=== PATIENT | female | born 1955 | race Caucasian/White ===

== ENCOUNTER 2018-12-31 04:03 | Observation (INO) | payer BC ==
[2018-12-31 05:48] VITALS: BMI 30.9
[2018-12-31] MEDS ORDERED: Ondansetron PF 4 MG/2 ML Vial IVP PRN (06:05)
[2018-12-31] MEDS ORDERED: Acetaminophen 500 MG TAB PO PRN (06:05)
[2018-12-31] MEDS ORDERED: Ondansetron ODT 4 MG TAB PO PRN (06:05)
[2018-12-31] MEDS: Levothyroxine Sodium 50 MCG TAB PO SCH (06:23)
--- NOTE | 2018-12-31 07:13 | HP ---
PRIMARY CARE PROVIDER: Dr. Saúl Gonzalez of [place], [place]. CHIEF COMPLAINT: Abdominal pain. HISTORY OF PRESENT ILLNESS: This is a 63-year-old female, who initially presented to [facility] Emergency Department complaining of mid epigastric abdominal pain. The patient states she ate a fried meal approximately 7 p.m. on 12/30/2018, and developed mid epigastric and right upper quadrant abdominal pain that woke her from sleep approximately 12:30 a.m. on 12/31/2018. The patient states the pain radiated to her back and caused her to sit upright. The patient became concerned with the symptoms and presented to the emergency room for evaluation. The patient received aspirin and sublingual nitroglycerin without specific change to her quality of pain. The patient also received IV morphine sulfate, which relieved and aided her symptoms. The patient denied any abhishek chest pain, shortness of breath, fever, or chills. The patient did state associated nausea and one episode of emesis en route to the emergency room. The patient denies any strong family history of coronary artery disease or personal history. The patient states she typically does not eat fatty foods and had a fried meal with beer at approximately 7 p.m. as stated previously. Metabolic screening in the emergency room was essentially unrevealing and patient was referred to the observation unit for evaluation. PAST MEDICAL HISTORY: 1. Hypertension. 2. Hypothyroidism. 3. Hyperlipidemia. PAST SURGICAL HISTORY: Reviewed and negative. CURRENT MEDICATIONS: 1. Amlodipine/benazepril 10/10 mg 1 tablet p.o. daily. 2. Sertraline 50 mg p.o. daily. 3. Levothyroxine 100 mcg p.o. daily. ALLERGIES: NO KNOWN DRUG ALLERGIES. FAMILY HISTORY: No inheritable disease per patient report. SOCIAL HISTORY: Occasional alcohol use. No illicit drug use. No smoking or tobacco products. Functional of all activities of daily living. Resides in [place], [place]. REVIEW OF SYSTEMS: CONSTITUTIONAL: Negative for weight loss or gain, ability to conduct usual activities. SKIN: Negative for rash, itching. EYES: Negative for double vision, pain. ENT/MOUTH: Negative for nose bleeding, neck stiffness, pain, tenderness. CARDIOVASCULAR: Negative for palpitations, dyspnea on exertion, orthopnea. RESPIRATORY: Negative for shortness of breath, wheezing, cough, hemoptysis, fever or night sweats. GASTROINTESTINAL: Negative for poor appetite, abdominal pain, heartburn, nausea, vomiting, constipation, or diarrhea. GENITOURINARY: Negative for urgency, frequency, dysuria, nocturia. MUSCULOSKELETAL: Negative for pain, swelling. NEUROLOGIC/PSYCHIATRIC: Negative for anxiety, depression. ALLERGY/IMMUNOLOGIC: Negative for skin rash, bleeding tendency. Otherwise negative except as stated per HPI. PHYSICAL EXAMINATION: VITAL SIGNS: On admission, blood pressure 143/83, pulse 93, respiratory rate 18, temperature 99.1 degrees Fahrenheit, O2 saturation 95% on room air. GENERAL APPEARANCE: This is a 63-year-old female, alert and oriented x3, pleasant, smiling, in no acute distress. HEENT: Pupils are equal, round, reactive to light and accommodation. Extraocular muscles are intact. No scleral icterus. No conjunctival injection. Nares patent. OP is clear. Teeth in good repair. NECK: Supple. No cervical adenopathy. No thyromegaly. No carotid bruits. No JVD appreciated. Cervical spine with full active and passive range of motion. No meningeal signs noted. CHEST: Lungs are clear to auscultation bilaterally, CARDIOVASCULAR: S1, S2 without noted murmur, rub, or gallop. ABDOMEN: Rounded, soft, nontender, and nondistended. Bowel sounds are positive in all 4 quadrants. There is no hepatosplenomegaly. No abdominal bruits. No rebound or guarding appreciated. EXTREMITIES: Warm and dry with fair turgor. No clubbing, cyanosis, or asymmetric edema appreciated. Pulses palpable distally at the dorsalis pedis, posterior tibial, and popliteal arteries bilaterally. Capillary refill less than 2 seconds. NEUROLOGIC: Cranial nerves 2 through 12 are grossly intact. No focal or lateralizing signs appreciated. PERTINENT LABORATORY DATA AND X-RAY FINDINGS: Sodium 142, potassium 3.4, chloride 102, CO2 of 29, BUN 12, creatinine 0.86, estimated GFR 67, glucose 127, calcium 9.6. LFTs within normal limits. BNP less than 10. Troponin I negative x1. Albumin 4.6, lipase 46. CBC within normal limits. Portable chest x-ray dated 12/31/2018, by my interpretation shows no acute cardiopulmonary process. EKG dated 12/31/2018, by my interpretation shows sinus mechanism with heart rates in the 80s. Normal R-wave progression noted in the precordial leads. Incomplete right bundle branch block pattern. Left axis deviation. ASSESSMENT AND PLAN: 1. Epigastric abdominal pain. The patient will be observed on the telemetry unit. Question of gallbladder etiology. We will check right upper quadrant abdominal ultrasound to rule out gallbladder pathology or common bile duct obstruction. Continue symptomatic and supportive management. 2. Chest pain. Clinically, secondary to abdominal pain. No current evidence to suggest acute coronary syndrome. 3. Hypertension. Resume home antihypertensive regimen and monitor clinical response. 4. Hypothyroidism. Continue levothyroxine 50 mcg p.o. daily. 5. Hyperlipidemia. Continue Zocor 40 mg daily. 6. Prophylaxis. SCDs while in bed. Pepcid 20 mg p.o. b.i.d. CODE STATUS: Full. Surrogate medical decision maker is the patient's spouse. Job ID: [id number]
[2018-12-31 08:22] LABS: Troponin I Less than 0.010 ng/mL (< 0.028)
[2018-12-31] MEDS: Famotidine 20 MG TAB PO SCH ×2 (08:28→19:44)
[2018-12-31] MEDS: Amlodipine 5 mg/Benazepril 20 mg CAP PO SCH (08:29)
--- NOTE | 2018-12-31 08:49 | ULT ---
GALLBLADDER ULTRASOUND: INDICATION: Pain. FINDINGS: There is increased echogenicity of the hepatic parenchyma. Hypoattenuation adjacent the gallbladder may relate to focal fatty sparring. The gallbladder wall is normal in thickness at 2 mm. There is a focus of increased echogenicity of the gallbladder lumen, 4 mm without shadowing and is reported as nonmobile by the dust brush assembler. This could relate to a small gallbladder polyp. Harris's sign is repo rted as negative. The common duct is normal at 3 mm. IMPRESSION: 1. Findings which indicate a 4 mm gallbladder polyp. Six-month followup right upper quadrant ultraso und is recommended to confirm size stability. 2. Increased echogenicity of the liver indicating hepatic steatosis with probable sparing adjacent t he gallbladder. The possibility of a trace volume of pericholecystic edema is not excluded, although no discrete gallbladder wall thickening is recommended and there is a negative Harris's sign reportmichael d. Recommend clinical correlation in this regard. POS: [facility]
[2018-12-31 10:57] LABS: Troponin I Less than 0.010 ng/mL (< 0.028)
[2018-12-31] MEDS ORDERED: ISOVUE-370 76%-LOCM 1 ML ONE (12:00)
--- NOTE | 2018-12-31 13:05 | PDOC.HOSPP ---
- Subjective Encounter Date: 12/31/18 Encounter Time: 12:00 Subjective: Feels better.. - Objective Vital Signs & Weight: Vital Signs (12 hours) Temp Pulse Resp BP BP Pulse Ox 12/31/18 11:18 98.2 F 72 20 94/55 L 98 12/31/18 07:10 97.3 F L 78 20 118/63 94 L 12/31/18 05:19 98.7 F 79 18 124/74 96 Weight Weight 180 lb 9.6 oz Hospitalist ROS - Medication Medications: Active Medications Generic Name Dose Route Start Last Admin Trade Name Freq PRN Reason Stop Dose Admin Amlodipine/Benazepril HCl 1 cap 12/31/18 09:00 12/31/18 08:29 Lotrel 5/20 PO 1 cap DAILY TATYANA Administration Famotidine 20 mg 12/31/18 09:00 12/31/18 08:28 Pepcid PO 20 mg BID TATYANA Administration Levothyroxine Sodium 50 mcg 12/31/18 06:00 12/31/18 06:23 Synthroid PO 50 mcg 0600 TATYANA Administration - Exam General Appearance: NAD Neck: supple Heart: RRR Respiratory: CTAB Gastrointestinal: soft Extremities: no edema Neurological: no focal deficits Hosp A/P (1) Epigastric abdominal pain Code(s): R10.13 - EPIGASTRIC PAIN Status: Acute Plan: Gallbladder ultrasound shows polyp.. General surgery to see. (2) HTN (hypertension) Code(s): I10 - ESSENTIAL (PRIMARY) HYPERTENSION Status: Acute Plan: controlled.. (3) Hypothyroidism Code(s): E03.9 - HYPOTHYROIDISM, UNSPECIFIED Status: Acute Plan: supplemented.. (4) Hyperlipidemia Code(s): E78.5 - HYPERLIPIDEMIA, UNSPECIFIED Status: Acute Plan: On Statin - Plan Continue current therapy.. General surgery to see..
--- NOTE | 2018-12-31 20:58 | CON ---
DATE OF CONSULTATION: HISTORY OF PRESENT ILLNESS: Jacqueline Barillas is a 63-year-old female, had her 1st episode of epigastric pain last night after eating fried fish. The patient's states he felt a little ill after eating the fish. The patient denies any prior history of biliary type symptoms. She denies having any problems with epigastric pain, bloating, belching, indigestion, or pain. The patient was evaluated and EKGs were normal. Troponins negative. Family history is negative for cardiac disease. She has never had any cardiac symptoms. The patient states she has onset of some of the mild epigastric pain again, coming on although not so strong as before. Ultrasound obtained revealed a gallbladder polyp of 4 mm. Six-month followup ultrasound recommended. Liver ultrasound revealed fatty liver changes. Liver function tests are normal. Glucose 127, BUN 12, creatinine 0.86. ALLERGIES: NONE. TOBACCO: None. ALCOHOL: None. MEDICATIONS: 1. Levothyroxine. 2. Zocor. 3. Sertraline. 4. Amlodipine. 5. Benazepril. PAST MEDICAL HISTORY: Noncontributory. PAST SURGICAL HISTORY: Noncontributory. REVIEW OF SYSTEMS: Ten-point noncontributory. PHYSICAL EXAMINATION: VITAL SIGNS: Height 5 feet 480 pounds, BMI 31, temperature 98 degrees, pulse 77, blood pressure 104/58. HEAD, EARS, EYES, AND THROAT: Unremarkable. LUNGS: Clear to auscultation. CARDIAC: Regular rate and rhythm without murmur or gallop. ABDOMEN: Soft and nontender. No masses. No guarding or whatsoever. EXTREMITIES: Unremarkable. No ankle edema. NEUROLOGICAL: Intact. LYMPH: No lymphadenopathy at neck, axilla or groins. ASSESSMENT AND PLAN: 1. Abdominal pain of uncertain etiology. Her gallbladder polyp would not cause such pain. I have had a lengthy discussion with the patient and her . We will proceed with a CAT scan of her abdomen and pelvis at her age of 63 to assure there is nothing missed that is causing her pain. Since this is only her 1st perhaps early onset 2nd (beginning now, but milder) episode, consideration of HIDA scan could be given, but patient wants to wait on that. If we ordered a HIDA scan, it would be a HIDA scan with ejection fraction. At this point, we will obtain the CAT scan of chest she does overnight. Most likely, she will decide to follow up in my office for a further workup for persistent pain. I would leave it to the medical service whether the patient needs a further cardiac workup. 2. Hypothyroidism. 3. Elevated cholesterol. 4. Hypertension. Job ID: [id number]
[2018-12-31] MEDS ORDERED: Atorvastatin Calcium 20 MG TAB PO SCH (21:00)
--- NOTE | 2018-12-31 21:49 | CT ---
CT Abdomen Pelvis W Con HISTORY: Abdominal pain. Nausea and vomiting. COMPARISON: Gallbladder ultrasound done earlier today FINDINGS: Lung bases show gravity dependent ate lectasis. Mild fatty change of the liver is noted. The spleen and pancreas regions appear unremarkable, there i s suggestion of some slight gallbladder wall thickening or possibly some minimal pericholecystic edema. Right and left adrenal glands and right and left kidneys are normal in size. The appendix is retrocec al in position and normal. No significant periaortic or mesenteric adenopathy. CT of pelvis performed with contrast enhancement: Diverticulosis of the descending and sigmoid colon is noted. No free fluid, adenopathy or mass. IMPRESSION: Suggestion of some slight gallbladder wall thickening or possibly some minimal edema fleming ge. Correlation with hepatobiliary scan is suggested if indicated. Mild fatty change of the liver is also incidentally seen.
[2019-01-01] MEDS: Levothyroxine Sodium 50 MCG TAB PO SCH (06:08)
[2019-01-01] MEDS: Amlodipine 5 mg/Benazepril 20 mg CAP PO SCH (10:44)
[2019-01-01] MEDS: Famotidine 20 MG TAB PO SCH (10:44)
--- NOTE | 2019-01-01 11:26 | PRG ---
DATE OF SERVICE: 01/01/2019 SUBJECTIVE: Jacqueline Barillas had a CAT scan of the abdomen and pelvis today. This is unremarkable except for some equivocal possible pericholecystic edema. CAT scan was otherwise unremarkable. Ultrasound showed a 4 mm gallbladder polyp. The patient has some mild epigastric pain. This is her first episode of pain that she has had. Her liver function test and labs are normal today. OBJECTIVE: LUNGS: Clear to auscultation. CARDIAC: Regular rate and rhythm without murmur or gallop. ABDOMEN: Soft and nontender. No guarding. EXTREMITIES: Unremarkable. ASSESSMENT AND PLAN: I discussed with the patient consideration of HIDA scan with ejection fraction, but she is not wanting to have her gallbladder out this time. I recommended she follow up in my office as an outpatient. We will resume her regular diet and follow up with me as an outpatient. If she has persistent epigastric symptoms, at which time we will obtain a HIDA scan, ejection fraction, discuss further interventions. Job ID: [id number]
[2019-01-01 11:41] VITALS: BP 115/69; TEMP 98.9
--- NOTE | 2019-01-01 13:15 | DIS ---
DATE OF ADMISSION: 12/31/2018 DATE OF DISCHARGE: 01/01/2019 ADMITTING DIAGNOSES: 1. Epigastric pain, not of coronary origin. 2. Hypertension. 3. Hypothyroidism. 4. Hyperlipidemia. DISCHARGE DIAGNOSES: 1. Epigastric pain, not of coronary origin. 2. Hypertension. 3. Hypothyroidism. 4. Hyperlipidemia. STYLE ADVISOR: Dr. Gonzalez. PROCEDURE: Abdomen and pelvis CT and also abdominal ultrasound, which showed a gallbladder polyp. COURSE OF HOSPITALIZATION: Uncomplicated. Responded well to management. The patient was seen by Dr. Gonzalez. She does not have any surgical problem at this time. The patient is to follow up with Dr. Gonzalez in view of her gallbladder polyp. PHYSICAL EXAMINATION: GENERAL: Today, the patient is alert and oriented, in no distress. VITAL SIGNS: Her latest vital signs show a temperature of 98.9, pulse rate 65, respiratory rate 16, and blood pressure 115/69. HEAD AND NECK: Normal. HEART: She has regular S1 and S2. LUNGS: Clear. ABDOMEN: Benign. EXTREMITIES: Limbs show no edema. NEUROLOGIC: She moves all extremities. DISCHARGE MEDICATION: Please see discharge medication reconciliation sheet. PROCEDURE DONE: Noninvasive include abdomen and pelvis CT and abdomen ultrasound as mentioned again. FOLLOWUP: The patient is to follow up with Dr. Gonzalez and her primary care physician. Job ID: [id number]
== END 2019-01-01 13:18 | disposition home or self-care (01) ==
LOC: ERS 04:03 → 2SW 05:33
PROVIDERS: ADMIT Family Medicine; ATTEND Family Medicine
DX: R10.13 Epigastric pain (principal); R07.89 Other chest pain; I10 Essential (primary) hypertension; E03.9 Hypothyroidism, unspecified; E78.5 Hyperlipidemia, unspecified; K82.4 Cholesterolosis of gallbladder; E78.00 Pure hypercholesterolemia, unspecified; Z79.899 Other long term (current) drug therapy
CPT/HCPCS: 36415; 74177; 76705; 93005; G0378; Q9966

== ENCOUNTER 2019-03-26 20:17 | Inpatient (IN) | payer BC ==
[2019-03-26 20:52] LABS: #Eosinphils 0.1 thou/uL (0.0-0.7); #Lymphocytes 0.7 thou/uL (1.20-3.40); %Basophils 0.2 % (0.0-1.0); %Eosinophils 0.8 % (0.0-10.0); %Monocytes 6.6 % (0.0-10.0); %Neutrophils 87.4 % (42.0-75.0); Hemoglobin 13.6 g/dL (12.0-16.0); Mean Corpuscular HGB CONC 33.7 g/dL (32.0-36.0); Mean Corpuscular Volume 91.9 fL (78.0-98.0); Mean Platelet Volume 8.2 fL (7.4-10.4); Platelet Count 202 thou/uL (130-400); RBC Distribution Width 11.5 % (11.5-14.5); Red Blood Cell (RBC) Count 4.38 mill/uL (4.20-5.40); White Blood Cell (WBC) Count 14.8 thou/uL (4.8-10.8)
[2019-03-26 21:18] LABS: ALT (SGPT) 326 U/L (8-55); AST (SGOT) 107 U/L (5-34); Albumin 4.1 g/dL (3.4-4.8); Alkaline Phosphatase 197 U/L (40-110); Anion Gap 16 mmol/L (10-20); BUN (Urea Nitrogen) 29 mg/dL (9.8-20.1); Calc. Creatinine Clearance 0 mL/min (70-130); Calcium 9.5 mg/dL (7.8-10.44); Carbon Dioxide 24 mmol/L (23-31); Chloride 94 mmol/L (98-107); Estimated GFR-MDRD 18; Globulin 2.9 g/dL (2.4-3.5); Glucose 107 mg/dL (80-115); Potassium 3.3 mmol/L (3.5-5.1); Sodium 131 mmol/L (136-145)
--- NOTE | 2019-03-26 21:21 | RAD ---
EXAM: CHEST ONE VIEW HISTORY: Chest COMPARISON: 12/31/2018 FINDINGS: The cardiac silhouette and pulmonary vasculature is within normal limits. The lungs are clear. The os seous structures are intact. Chest is stable compared to prior exam. IMPRESSION: No acute cardiopulmonary process.
[2019-03-26 21:28] LABS: Bacteria/HPF 2+ HPF (None Seen); Bilirubin 1+ (Negative); Blood, Urine Trace (Negative); Clarity Turbid (Clear); Glucose, Urine (Dipstick) Normal (Negative); Leukocyte 75 Leu/uL (Negative); Nitrite Negative (Negative); Protein, Urine (Dipstick) 30 mg/dL (Neg-Trace); RBC/HPF 0-3 HPF (0-3); Renal Epithelial 0-3 HPF (None Seen); Squamous Epithelial None Seen HPF (0-3); Urobilinogen Normal mg/dL (Less than 2); WBC/HPF 21-50 HPF (0-3)
[2019-03-26] MEDS ORDERED: cefTRIAXone\\ROCEPHIN 1 GM VIAL ONE (21:55)
[2019-03-26] MEDS ORDERED: Acetaminophen 500 MG TAB ONE (21:55)
[2019-03-26] MEDS ORDERED: Ondansetron PF 4 MG/2 ML Vial ONE (21:55)
[2019-03-26] MEDS ORDERED: Piperacillin/Tazobactam 3.375 GM VIAL ONE (22:54)
[2019-03-26] MEDS ORDERED: Potassium Chloride 20 MEQ TAB ONE (23:16)
--- NOTE | 2019-03-26 23:16 | ULT ---
RIGHT UPPER QUADRANT ULTRASOUND: History: Fever, elevated white blood cell count, elevated liver function test. Comparison: 12-31-18 FINDINGS: There is increased echogenicity of the liver with respect to the right kidney. This was also seen on the prior ultrasound exam and is suggestive of fatty infiltration. The gallbladder wall is thickened measuring 0.5 cm with suggestion of trace adjacent pericholecystic fluid. No definite gallbladder calculus is seen. This does represent an interval change when compared to the prior exam. The common duct is also dilated on today's examination measuring 0.7 cm with prev ious measurement of 0.3 cm. The majority of the pancreas is obscured by bowel gas and not well evaluated. Limited visualized portions of the IVC and right kidney demonstrate a normal sonographic appearance. The right kidney measures 11.2 cm in length. IMPRESSION: 1. Gallbladder wall thickening with adjacent pericholecystic fluid with a tiny amount of gallbladder sludge. No gallbladder calculus is visualized. Findings may be related to acalculus cholecystitis in the correct clinical scenario. Depending upon clinical concern, hepatobiliary study can be confirmed for further evaluation. 2. Dilation of the common duct which measures 0.7 cm. No intrahepatic biliary ductal dilation is appr eciated. 3. Diffuse fatty infiltration of the liver. POS: [facility]
[2019-03-27 01:01] VITALS: BMI 29.5
[2019-03-27] MEDS ORDERED: Ondansetron ODT 4 MG TAB SL PRN (02:01)
[2019-03-27] MEDS ORDERED: Ondansetron PF 4 MG/2 ML Vial IVP PRN ×2 (02:01→13:27)
[2019-03-27] MEDS ORDERED: HYDROcodone/Acetaminophen 5/325 mg Tablet PO PRN ×2 (02:01)
[2019-03-27] MEDS: Sodium Chloride 0.9% 1,000 ML IV SCH ×5 (02:29→23:17)
[2019-03-27] MEDS ORDERED: Acetaminophen 325 MG TAB PO PRN (09:17)
[2019-03-27] MEDS ORDERED: Rocuronium Bromide 10 MG/ML (10ML VIAL) ONE ×2 (10:06→10:13)
[2019-03-27] MEDS ORDERED: Ondansetron PF 4 MG/2 ML Vial ONE (10:13)
[2019-03-27] MEDS ORDERED: Lidocaine 1% PF 5 ML VIAL ONE (10:13)
[2019-03-27] MEDS ORDERED: Dexamethasone 20 MG/5 ML VIAL ONE (10:13)
[2019-03-27] MEDS ORDERED: PROPOFOL 200 MG/20 ML VIAL ONE (10:13)
[2019-03-27] MEDS ORDERED: Piperacillin/Tazobactam 3.375 GM VIAL ONE (10:16)
[2019-03-27] MEDS ORDERED: Sodium Chloride 0.9% 100 ML ONE (10:16)
--- NOTE | 2019-03-27 10:28 | HP ---
CHIEF COMPLAINT: Abdominal pain, fever. HISTORY OF PRESENT ILLNESS: This patient is a 63-year-old female who was here in December with symptoms concerning for possible cholecystitis. At that time, the patient had abdominal ultrasound and CT scan which were suspicious, but ultimately not firmly diagnostic. A HIDA scan was recommended. However, at that time, the patient opted to forego further workup. She apparently has done well until the last few days at which time she has had a recurrence of epigastric abdominal pain radiating to the right upper quadrant, which seems to be exacerbated by eating. She has had some associated nausea, vomiting, and food intolerance. She also has had fevers and chills. She presented back through the emergency department. REVIEW OF SYSTEMS: The patient reports very poor p.o. intake over the last several days. Has not had a bowel movement in 4 days. States that it is not typical for her. All other systems reviewed. All pertinent positives and negatives noted in history of present illness. PAST MEDICAL HISTORY: Notable for hypertension, hyperlipidemia, hypothyroidism. PAST SURGICAL HISTORY: None. FAMILY HISTORY: No heritable diseases. SOCIAL HISTORY: The patient has occasional alcohol. No drugs. No alcohol. She is full code. ALLERGIES: NONE. CURRENT MEDICATIONS: 1. Simvastatin 40 mg one p.o. at bedtime. 2. Sertraline 50 mg p.o. daily. 3. Amlodipine/benazepril 5/20 one p.o. daily. 4. Levothyroxine one p.o. daily. PHYSICAL EXAMINATION: VITAL SIGNS: In the emergency department, temperature was 101.3, pulse 105, BP 113/75, O2 saturations were 97% on room air. GENERAL APPEARANCE: Presently patient is awake, alert, oriented, pleasant, and cooperative. She is in no distress. HEENT: PERRL, no OP lesions. Moist oral mucosa. NECK: Supple and symmetric without lymphadenopathy, JVD, or carotid bruits. HEART: Regular rate and rhythm without murmurs, gallops, or rubs. LUNGS: Clear to auscultation bilaterally with good chest wall expansion and air exchange. ABDOMEN: Soft, nondistended. Positive bowel sounds. No masses. No organomegaly. There is mild tenderness to palpation in the right upper quadrant with moderate to deep palpation and a positive Harris sign. EXTREMITIES: No cyanosis, clubbing, or edema. PSYCHIATRIC: Normal affect and behavior. NEUROLOGIC: Cognitively intact. Cranial nerves intact. She appears to move all extremities spontaneously with no focal deficits. LABORATORY DATA: White count 14.8, hemoglobin 13.6, platelets 202. Sodium 131, potassium 3.3, chloride 94, CO2 of 24, BUN 29, creatinine is 2.64, glucose 107, lactic acid 0.9, calcium 9.5. Total bilirubin 7.0, AST 107, ALT 326, alkaline phosphatase 197, lipase 24. Urinalysis is turbid, trace protein, trace ketones, 1+ bilirubin, positive leukocyte esterase with 0 to 3 red cells, 21 to 50 blood cells, 2+ bacteria. Flu screen negative. Blood cultures pending. IMAGING: Chest x-ray negative. Abdominal ultrasound shows gallbladder wall thickening with adjacent pericholecystic fluid with a tiny amount of gallbladder sludge. No stones could be related to acalculous cholecystitis. There is dilatation of the common bile duct at 0.7 cm. No intrahepatic biliary ductal dilatation appreciated. Diffuse fatty infiltration of the liver. EKG shows sinus tach with an incomplete right bundle branch block. IMPRESSION AND PLAN: 1. Acalculous cholecystitis with a possible obstructive picture. The patient has significantly elevated bilirubin along with elevated liver enzymes. She previously had evidence of equivocal image findings for cholecystitis. Those seem to have progressed. Her symptoms certainly appear to be consistent with that. We will cover with antibiotics and fluids. Consult GI, consult Surgery. I have spoken with GI. MRCP is currently planned. 2. Acute on chronic kidney disease. It appears the patient has chronic kidney disease stage 3, but has acute worsening. Her indices would suggest it is not prerenal, although certainly the clinical scenario might suggest such. Therefore, she has been getting aggressive hydration. We will continue that. Repeat those levels now. 3. Hyponatremia, likely associated with the renal injury and possible dehydration. We will reassess after fluids. 4. Hypokalemia, repleted with a dose in the emergency department. We will recheck those levels as well. 5. Leukocytosis, consistent with possible cholecystitis or UTI. 6. Possible urinary tract infection. The patient had Rocephin and Zosyn given in the emergency department and cannot effectively get urine culture now if not already done. We will continue to cover with the Zosyn for now. 7. Hypertension, continue with her usual home medication regimen. 8. Hyperlipidemia, continue her home statin. 9. Hypothyroidism, continue with her usual levothyroxine dosing. Job ID: [id number]
[2019-03-27] MEDS ORDERED: Ketorolac Tromethamine 30 MG/ML VIAL ONE (10:59)
[2019-03-27] MEDS ORDERED: Scopolamine 1.5 mg/72 hour Patch ONE (10:59)
[2019-03-27] MEDS ORDERED: Acetaminophen 500 MG TAB ONE (10:59)
[2019-03-27] MEDS ORDERED: Ketorolac Tromethamine 30 MG/ML VIAL IVP SCH (11:00)
[2019-03-27] MEDS ORDERED: Acetaminophen 500 MG TAB PO SCH (11:00)
[2019-03-27] MEDS ORDERED: Scopolamine 1.5 mg/72 hour Patch TD SCH (11:00)
[2019-03-27] MEDS ORDERED: Iothalamate Meglumine 60% 50 ML VIAL FS ONE (11:21)
--- NOTE | 2019-03-27 11:26 | CON ---
DATE OF CONSULTATION: HISTORY OF PRESENT ILLNESS: Jacqueline Barillas is a 63-year-old female, whom I saw in December for abdominal pain, gallbladder ultrasound was unremarkable at that time and liver function tests are normal; however, she had biliary symptoms and discussion of HIDA scan was undertaken, but she declined. In the interim, she has not had any problems until recently she states when she went to the same restaurant and had upper abdominal pain similar to that she had previously. This radiated to her back and associated with nausea. The patient had a bilirubin of 7. Bile duct was dilated to 7 mm compared to her 3 mm bile duct in December. There was no intrahepatic ductal dilatation. Ultrasound suggested sludge, but no definite stone. Dr. To has seen her and ERCP planned today. He informed me and plan would be for laparoscopic cholecystectomy under the same anesthetic after ERCP. She understands the risks and benefits and consents. ALLERGIES: NONE. SOCIAL HISTORY: Tobacco, none. Alcohol, none. MEDICATIONS: 1. Levothyroxine. 2. Zocor. 3. Sertraline. 4. Amlodipine. 5. Benazepril. PAST MEDICAL HISTORY: Noncontributory. PAST SURGICAL HISTORY: Noncontributory. REVIEW OF SYSTEMS: Noncontributory except as noted above. PHYSICAL EXAMINATION: VITAL SIGNS: 5 feet 4 inches, 172 pounds, 29 BMI, temperature 98.4, pulse 75, and blood pressure 116/73. HEAD, EARS, EYES, NOSE AND THROAT: Unremarkable. LUNGS: Clear to auscultation. CARDIAC: Regular rate and rhythm without murmur or gallop. ABDOMEN: Soft. Mild tenderness in her epigastric right upper quadrant. EXTREMITIES: Unremarkable. ASSESSMENT AND PLAN: Cholecystitis with cholelithiasis. She has gallbladder sludge on this ultrasound. There are inflammatory changes under ultrasound. She has ongoing right upper quadrant pain and tenderness. Liver function tests are elevated. Dr. To is planning an ERCP and I will follow that with a lap nellie. She understands risks and benefits and consents. Risks of infection, bleeding, visceral and biliary injury, open procedure, and consents. Job ID: [id number]
[2019-03-27] MEDS ORDERED: Indomethacin 50 MG SUPP ONE (11:27)
[2019-03-27] MEDS ORDERED: Fentanyl 250 MCG/5 ML VIAL ONE (11:33)
[2019-03-27] MEDS ORDERED: Piperacillin/Tazobactam 3.375 GM in Sodium Chloride 0.9% 100 ML IVPB SCH (12:00)
[2019-03-27] MEDS: Piperacillin/Tazobactam 3.375 GM in Sodium Chloride 0.9% 100 ML IVPB SCH ×3 (12:04→21:43)
[2019-03-27] MEDS ORDERED: Bupivacaine PF 0.5% 30 ML VIAL ONE (12:09)
[2019-03-27] MEDS ORDERED: Lidocaine 1% w/Epinephrine 1:100K 20 ML VIAL ONE (12:09)
--- NOTE | 2019-03-27 13:07 | RAD ---
EXAM: XR ERCP PROVIDED CLINICAL HISTORY: Elevated liver function tests, increased white blood cell count and fever. Dilated common duct. FINDINGS/IMPRESSION: 7 intraoperative fluoroscopic images of the right upper quadrant of the abdomen are submitted. The co mmon duct is cannulated with guidewire in place. Initial images demonstrate suggestion of a few filling defects within the distal common duct which may represent calculi. Subsequent imaging demonst rates balloon catheter within the distal common duct. The last provided images do not demonstrate definite filling defect in the common duct, but the images do not demonstrate free spill of contrast into the small bowel. Common duct does appear mildly dilated without significant intrahepatic biliary duct dilatation appreciated. Correlation with intraoperative findings is recommended.
[2019-03-27] MEDS ORDERED: SUGAMMADEX SODIUM 500 MG/5 ML VIAL ONE (13:17)
[2019-03-27] MEDS ORDERED: SUGAMMADEX SODIUM 200 MG/2 ML VIAL ONE (13:17)
[2019-03-27] MEDS ORDERED: Acetaminophen 500 MG TAB PO PRN (13:27)
[2019-03-27] MEDS ORDERED: Ondansetron ODT 8 MG TAB SL PRN (13:27)
[2019-03-27] MEDS ORDERED: traMADol HCl 50 MG TAB PO PRN ×2 (13:27)
[2019-03-27] MEDS ORDERED: Ondansetron ODT 8 MG TAB PO PRN (13:27)
[2019-03-27] MEDS ORDERED: Sodium Chloride 0.9% 1,000 ML IV SCH (13:30)
[2019-03-27 15:52] LABS: ALT (SGPT) 207 U/L (8-55); AST (SGOT) 77 U/L (5-34); Albumin 3.5 g/dL (3.4-4.8); Alkaline Phosphatase 160 U/L (40-110); Anion Gap 16 mmol/L (10-20); BUN (Urea Nitrogen) 22 mg/dL (9.8-20.1); Bilirubin, Total 5.8 mg/dL (0.2-1.2); Calc. Creatinine Clearance 44 mL/min (70-130); Calcium 8.8 mg/dL (7.8-10.44); Carbon Dioxide 18 mmol/L (23-31); Chloride 110 mmol/L (98-107); Estimated GFR-MDRD 32; Globulin 2.7 g/dL (2.4-3.5); Glucose 111 mg/dL (80-115); Potassium 4.1 mmol/L (3.5-5.1); Protein, Total 6.2 g/dL (6.0-8.3); Sodium 140 mmol/L (136-145)
--- NOTE | 2019-03-27 17:23 | CON ---
DATE OF CONSULTATION: 03/27/2019 REASON FOR CONSULT: Cholecystitis. Ms. Barillas was in the hospital in December with right upper quadrant pain and thick gallbladder wall and suspected biliary colic. She was seen by General Surgery. Ultimate decision was made not to remove her gallbladder. She had no gallstones and refused a HIDA scan at that time, although it seems, it was felt that at discharge her symptoms were biliary colic related. She re-presented, was admitted last night. She states she became ill. Intermittently, she has had pain in the upper abdomen radiating to her back since that discharge in December but on , became much more ill with vomiting and worse pain. She also had chills and rigors on Wednesday, but just felt too bad to come to the hospital, had some Vicodin she took it from her who recently had surgery. Yesterday, she finally came to the hospital which was Wednesday, she had fever up to 101 at home. In the emergency room, she was given a dose of antibiotic and admitted to the floor with IV fluids. I have been asked to see her. Presently, she notes that she just feels terrible. She has not had more fever that she knows of or chills. PAST MEDICAL HISTORY: Hypertension, hyperlipidemia, hypothyroidism, biliary colic. PAST SURGICAL HISTORY: She reports she had a screening colonoscopy in the past. FAMILY HISTORY: Negative for colorectal cancer or liver disease. SOCIAL HISTORY: She drinks alcohol occasionally but not daily. She does not use drugs. She does not smoke. REVIEW OF SYSTEMS: She denies any history of liver disease. She denies any history of prior abnormal liver function tests. ALLERGIES: NONE. MEDICATIONS: At home: 1. Simvastatin. 2. Sertraline. 3. Amlodipine/benazepril. 4. Levothyroxine. Medications here: 1. Tylenol. 2. Lovenox. 3. Toradol. 4. Zosyn had been given in the emergency room, was started this morning. Her IV was hep-locked. PHYSICAL EXAMINATION: VITAL SIGNS: Temperature 98.4 max since admitted. Pulse 85, blood pressure 116 to 106 over 73 to 69, respirations 18, pulse 75. GENERAL: She is jaundiced. LUNGS: CLEAR. HEART: Regular without murmurs. ABDOMEN: Soft. There is mild tenderness in the right upper quadrant. There is no rebound. There is no guarding. EXTREMITIES: No clubbing, cyanosis, or edema. SKIN: Without rash or lesions. LABORATORY DATA: White count 14,000, hemoglobin 13.6, platelet count 202. This is from yesterday. Sodium 131, potassium 3.3, BUN and creatinine 29 and 2.64. Bilirubin 7. AST and ALT 107 and 326. Lipase is 24 and 126. Ultrasound showed thickened gallbladder wall on 03/26 at 2100, pericholecystic fluid, some sludge, 7 mm bile duct, diffuse fatty liver. CAT scan last admission in December showed no other abnormalities. ASSESSMENT: 1. My concern is the patient has been having biliary colic and now has possibly ascending cholangitis versus based on labs, rigors and chills, she is not presently septic. 2. Dehydration. 3. Acute renal failure. 4. History of fatty liver. RECOMMENDATIONS: 1. Restart IV fluids. 2. Zosyn, start now, which is Dr. Felix's order. 3. Emergent ERCP today. Risks, benefits, possible complications of ERCP including perforation, bleeding, reaction to medication, and aspiration and bleeding were discussed with the patient. She wished to proceed. Job ID: [id number]
--- NOTE | 2019-03-27 17:29 | OP ---
DATE OF PROCEDURE: 03/27/2019 PROCEDURES PERFORMED: Endoscopic retrograde cholangiopancreatography and sphincterotomy with removal of common bile duct stone. PREPROCEDURE DIAGNOSES: 1. Suspected cholangitis, ascending. 2. Cholecystitis. 3. Dehydration. POSTPROCEDURE DIAGNOSES: 1. Choledocholithiasis. 2. Ascending cholangitis. ANESTHESIA: General endotracheal anesthesia. The patient was given Indocin suppositories per preprocedure antibiotics and IV fluid 1 L bolus. 1. Filling defect in common bile duct with removed black pigment stone with pus in the biliary tree exuding from the ampulla consistent with ascending cholangitis. 2. Nonfilling of the gallbladder. RECOMMENDATIONS: 1. Continue IV antibiotics. 2. Continue IV fluid resuscitation. 3. Consider lap nellie when stabilized. PROCEDURE IN DETAIL: After the patient was informed of the risk, benefits, and possible complications of endoscopy including perforation, reaction to medication, and aspiration, informed consent was obtained. The patient was brought to the endoscopy suite, where she was sedated in gradual fashion. Once she was comfortable, a bite block was placed inside the orifice. She was also intubated and then placed from prone position on the fluoroscopy table. A diversified crops i farmworker film was obtained. The side-viewing duodenoscope was advanced through the bite block, esophagus and second and third portion of duodenum with ampulla was brought into view. Pus was noted be coming from the ampulla. Free cannulation was obtained of the common bile duct with a guidewire advanced up into the intrahepatic ducts. The cholangiogram was obtained at that time showing filling of the common bile duct and some small stones in the distal duct. Sphincterotomy was performed and a guide exchange was made for a 15 mm balloon. The duct swept with the stone coming out. Films after sweeping the duct showed some contrast had gone into the biliary tree. There was never a catheter or a wire in the biliary tree nor was ever any contrast injected until the papillotome was well into the biliary tree. The duct was then swept two more times. No more stones and occlusion cholangiogram was negative. At the termination of the procedure, clear bile was draining from the ampulla and noted endoscopically and radiographically contrast draining from the biliary tree as well. The scope was removed. The patient was brought to the recovery room in stable condition. Job ID: [id number]
--- NOTE | 2019-03-27 18:09 | OP ---
DATE OF PROCEDURE: 03/27/2019 PREOPERATIVE DIAGNOSES: Cholecystitis, cholelithiasis, acute on chronic cholecystitis. PROCEDURE PERFORMED: Laparoscopic video cholecystectomy. Note Dr. Miguel To performed ERCP, stone extraction part of this operation under the same anesthetic. ANESTHESIA: General anesthesia, local 0.5% Marcaine 30 mL mixed with 1% Xylocaine with epinephrine 20 mL. FINDINGS: Acute cholecystitis, chronic scarring, edema. DESCRIPTION OF PROCEDURE: The patient was taken to the operating room where after Dr. To completed an ERCP under the same anesthetic, she was transferred to the operative suite. Abdomen prepared with ChloraPrep and draped in routine fashion. Local anesthetic was infiltrated in the skin and subcutaneous tissue about the operative sites. Infraumbilical incision made. Pneumoperitoneum established to 15 mmHg with the Veress needle, replaced with a 5 port. Right subxiphoid incision was made. An 11 mm port placed. Right subcostal incision was made at midclavicular entrance line and the five ports placed. The fundus of the gallbladder grasped at the cephalad. Infundibulum was grasped and reflected laterally. Cystic artery and duct dissected free, critical view obtained. Cystic artery was doubly clipped proximally and divided. Cystic duct dissected free, it was too broad to be occluded by the clip. Thus, two endo-loops were placed after dividing the cystic duct and secured this. Gallbladder dissected free from liver bed using cautery. Gallbladder and contents removed, submitted to Pathology. Hemostasis was gained with the cautery. Irrigant and pneumoperitoneum evacuated. Good hemostasis ensured. All skin incisions were approximated with subdermal 4-0 Monocryl and Coldfoot glue applied. Job ID: [id number]
[2019-03-27] MEDS: Enoxaparin Sodium 30 MG/0.3 ML SYRINGE SC SCH (20:00)
[2019-03-28] MEDS: Piperacillin/Tazobactam 3.375 GM in Sodium Chloride 0.9% 100 ML IVPB SCH ×4 (04:05→22:49)
[2019-03-28] MEDS: Sodium Chloride 0.9% 1,000 ML IV SCH ×4 (04:07→20:25)
[2019-03-28 05:39] LABS: #Lymphocytes 0.8 thou/uL (1.20-3.40); #Monocytes 0.6 thou/uL (0.11-0.59); %Basophils 0.1 % (0.0-1.0); %Eosinophils 0.2 % (0.0-10.0); %Lymphocytes 6.7 % (21.0-51.0); %Monocytes 5.3 % (0.0-10.0); %Neutrophils 87.8 % (42.0-75.0); Hemoglobin 11.2 g/dL (12.0-16.0); Mean Corpuscular HGB CONC 33.2 g/dL (32.0-36.0); Mean Corpuscular Hemoglobin 30.9 pg (27.0-31.0); Mean Platelet Volume 8.7 fL (7.4-10.4); Platelet Count 165 thou/uL (130-400); RBC Distribution Width 11.5 % (11.5-14.5); Red Blood Cell (RBC) Count 3.64 mill/uL (4.20-5.40); White Blood Cell (WBC) Count 11.4 thou/uL (4.8-10.8)
[2019-03-28 06:01] LABS: ALT (SGPT) 172 U/L (8-55); AST (SGOT) 73 U/L (5-34); Albumin 3.1 g/dL (3.4-4.8); Alkaline Phosphatase 136 U/L (40-110); Anion Gap 13 mmol/L (10-20); BUN (Urea Nitrogen) 21 mg/dL (9.8-20.1); Bilirubin, Total 3.7 mg/dL (0.2-1.2); Calc. Creatinine Clearance 51 mL/min (70-130); Carbon Dioxide 19 mmol/L (23-31); Chloride 111 mmol/L (98-107); Estimated GFR-MDRD 38; Globulin 2.4 g/dL (2.4-3.5); Glucose 146 mg/dL (80-115); Potassium 4.3 mmol/L (3.5-5.1); Protein, Total 5.5 g/dL (6.0-8.3); Sodium 139 mmol/L (136-145)
[2019-03-28] MEDS ORDERED: Enoxaparin Sodium 40 MG/0.4 ML SYRINGE SC SCH (09:00)
--- NOTE | 2019-03-28 14:41 | PDOC.HOSPP ---
- Subjective Subjective: Doing great. Abdomen feels bloated. Ambulating, eating. Says she has a lot of GI issues with po abx. - Objective Vital Signs & Weight: Vital Signs (12 hours) Temp Pulse Resp BP Pulse Ox 03/28/19 11:28 98.2 F 62 20 122/75 92 L 03/28/19 08:29 98 03/28/19 07:49 98.4 F 51 L 18 114/74 98 03/28/19 04:48 98.5 F 75 16 114/73 96 Weight Weight 172 lb I&O: 03/27/19 03/28/19 03/29/19 06:59 06:59 06:59 Intake Total 850 2755 Balance 850 2755 Result Diagrams: 03/28/19 05:10 03/28/19 05:10 Hospitalist ROS - Medication Medications: Active Medications Generic Name Dose Route Start Last Admin Trade Name Freq PRN Reason Stop Dose Admin Enoxaparin Sodium 30 mg 03/27/19 21:00 03/27/19 20:00 Lovenox SC 30 mg 2100 TATYANA Administration Piperacillin Sod/Tazobactam 100 mls @ 200 mls/hr 03/27/19 10:00 03/28/19 09: 36 Sod 3.375 gm/ Sodium Chloride IVPB 100 mls 0400,1000,1600,2200 TATYANA Administration Pantoprazole Sodium 40 mg 03/28/19 09:00 03/28/19 08:29 Protonix PO 40 mg DAILY TATYANA Administration Scopolamine 1.5 mg 03/27/19 11:00 03/27/19 12:04 Transderm Scop TD Not Given Q3D TATYANA Sodium Chloride 10 ml 03/27/19 09:00 03/28/19 08:29 Flush - Normal Saline IVF Not Given Q12HR TATYANA - Exam General Appearance: NAD, awake alert Heart: RRR, no murmur, no gallops, no rubs, normal peripheral pulses Respiratory: CTAB, no wheezes, no rales, no ronchi, normal chest expansion, no tachypnea, normal percussion Gastrointestinal: soft, non-tender, non-distended, normal bowel sounds, no palpable masses, no hepatomegaly, no splenomegaly, no bruit Skin: normal turgor, no lesions, no rashes Musculoskeletal: normal tone, normal strength, no muscle wasting Psychiatric: normal affect, normal behavior, A&O x 3 Hosp A/P (1) Choledocholithiasis with acute cholecystitis Code(s): K80.42 - CALCULUS OF BILE DUCT W ACUTE CHOLECYSTITIS W/O OBSTRUCTION Status: Acute (2) HTN (hypertension) Code(s): I10 - ESSENTIAL (PRIMARY) HYPERTENSION Status: Acute (3) Hyperlipidemia Code(s): E78.5 - HYPERLIPIDEMIA, UNSPECIFIED Status: Acute (4) Hypothyroidism Code(s): E03.9 - HYPOTHYROIDISM, UNSPECIFIED Status: Acute - Plan Doing well. Discussed with Dr. Gonzalez. Being that she does not do well with po abx, will go ahead and continue IV today and discharge in the morning on PO Augmentin.
--- NOTE | 2019-03-28 15:28 | PRG ---
DATE OF SERVICE: 03/28/2019 SUBJECTIVE: Jacqueline Barillas is doing well today. She is tolerating her diet, regular food. She is saline locked. Her IV fluids had been diminished. She has been ambulating frequently. She has not had any nausea or vomiting. Liver function tests remarkably improved after ERCP and sphincterotomy. The patient's acute kidney injury is much improved. Renal function is near normal. OBJECTIVE: LUNGS: Clear to auscultation. CARDIAC: REGULAR rate and rhythm without murmur or gallop. ABDOMEN: Soft and nontender. Surgical wounds look good. ASSESSMENT AND PLAN: Doing well after laparoscopic cholecystectomy, endoscopic retrograde cholangiopancreatography, and stone extraction. The patient did not have confusion, fever, or hypotension after endoscopic retrograde cholangiopancreatography and sphincterotomy. In my opinion, she can go home on oral antibiotics, but the patient states she cannot tolerate oral antibiotics. Thus, we will keep her another day on oral antibiotics. She will take Tylenol and Advil for pain. Diet and activity as tolerated without restrictions. I will see her in my office in approximately 2 weeks or sooner as needed. Job ID: [id number]
--- NOTE | 2019-03-28 20:09 | PRG ---
DATE OF SERVICE: 03/28/2019 SUBJECTIVE: Ms. Barillas feels much better than yesterday. She is tolerating liquid diet. OBJECTIVE: VITAL SIGNS: T-max 97.7, blood pressure is 127/69. LUNGS: Clear. ABDOMEN: Soft and nontender. LABORATORY DATA: White count is 11.4, down from 14.8; hemoglobin is 11.2, platelet count 165. Bilirubin down to 3.7, AST down to 73, ALT down to 122, alkaline phosphatase down to 136. BUN and creatinine have come down to 21 and 1.42. ASSESSMENT: 1. Ascending cholangitis and cholecystitis, markedly improved. 2. Elevated liver function tests secondary to above, improved. 3. Acute renal failure secondary to dehydration and sepsis, improved. PLAN: Advance diet as tolerated. I think she is going to go home hopefully tomorrow or the next day. Job ID: [id number]
[2019-03-28] MEDS: Enoxaparin Sodium 30 MG/0.3 ML SYRINGE SC SCH (20:25)
[2019-03-29] MEDS: Piperacillin/Tazobactam 3.375 GM in Sodium Chloride 0.9% 100 ML IVPB SCH ×2 (04:01→10:55)
[2019-03-29] MEDS: Sodium Chloride 0.9% 1,000 ML IV SCH (05:05)
[2019-03-29 07:38] LABS: ALT (SGPT) 124 U/L (8-55); AST (SGOT) 44 U/L (5-34); Alkaline Phosphatase 115 U/L (40-110); Anion Gap 10 mmol/L (10-20); BUN (Urea Nitrogen) 19 mg/dL (9.8-20.1); Bilirubin, Total 2.4 mg/dL (0.2-1.2); Calc. Creatinine Clearance 56 mL/min (70-130); Carbon Dioxide 22 mmol/L (23-31); Chloride 114 mmol/L (98-107); Estimated GFR-MDRD 42; Globulin 2.3 g/dL (2.4-3.5); Glucose 88 mg/dL (80-115); Potassium 3.8 mmol/L (3.5-5.1); Protein, Total 5.3 g/dL (6.0-8.3); Sodium 142 mmol/L (136-145)
[2019-03-29 11:21] VITALS: BP 139/84; TEMP 98.6
--- NOTE | 2019-03-30 00:30 | DIS ---
DATE OF ADMISSION: 03/27/2019 DATE OF DISCHARGE: 03/29/2019 DISCHARGE DIAGNOSES: 1. Choledocholithiasis. 2. Acute cholecystitis or cholestasis. 3. Hypothyroidism. 4. Hypertension. 5. Hyperlipidemia. HISTORY OF PRESENT ILLNESS: The patient is a 63-year-old female, who had been admitted here previously in December at which time, there was some concern about cholecystitis, although imaging was equivocal. The patient opted not to pursue HIDA scan. However, she returned on this occasion with worsening epigastric abdominal pain extending into the right upper quadrant. Subsequent ultrasound showed evidence of inflammation with slightly dilated common bile duct. She also had elevated bilirubin levels and elevated LFTs and some mild generalized jaundice. Her exam noted some right upper quadrant tenderness to palpation. GI and General Surgery were consulted. The patient was subsequently taken for ERCP, where she had ductal dilatation and stone extraction. Subsequently, she underwent a cholecystectomy under the same anesthesia event. The patient did extremely well on surgery. Postoperatively, she was able to eat and ambulate without any difficulties and was felt to be stable for discharge to home. PHYSICAL EXAMINATION: VITAL SIGNS: On the day of discharge, temperature is 99.0, pulse 74, respirations 18, O2 saturation 94% on room air, BP 132/83. GENERAL APPEARANCE: Age-appropriate female, slightly jaundiced. No distress. Awake and alert. HEART: Regular rate and rhythm without murmurs, gallops, or rubs. LUNGS: Clear to auscultation bilaterally. ABDOMEN: Soft, nontender, and nondistended. Positive bowel sounds. No masses. No organomegaly. EXTREMITIES: No cyanosis, clubbing, or edema. DISPOSITION: The patient will be discharged to home. DISCHARGE MEDICATIONS: She will continue with her usual home medications includin. Zocor 40 mg one p.o. daily. 2. Sertraline 50 mg one p.o. daily. 3. Amlodipine/benazepril 5 mg/20 mg one p.o. daily. 4. Levothyroxine 50 mcg p.o. daily. 5. She will also be on Augmentin 875 one p.o. b.i.d. DISCHARGE INSTRUCTIONS: She is to have a regular diet, although she is cautioned about keeping the fat content low for a period of time. She will have a regular activity level. She will follow up with Dr. Gonzalez in 2 to 3 weeks. She will follow up with Dr. To in 2 to 3 weeks. She is recommended to see her primary care provider, Dr. Lawrence, in [place] in 2 to 3 weeks as well. She can return to the hospital at any time should she have the need to do so. Job ID: [id number]
--- NOTE | 2019-03-30 09:48 | PQF ---
JENNY TRIANA DAVID R MD [id number] [facility] [id number] CLINICAL DOCUMENTATION CLARIFICATION FORM: POST DISCHARGE Addendum to original discharge summary date: ____ Late entry note date: __ DATE:03/30/2019 ATTN: ADAM BURT MD Please exercise your independent, professional judgment in responding to the clarification form. Clinical indicators are provided on the bottom of this form for your review Diagnosis:Sepsis Present on Admission (POA): [ x ] Yes [ ] No [ ] Unable to determine Coding guidelines require hospitals to identify whether a diagnosis was present on admission (POA) or not. To accurately assign the appropriate POA indicator, this information must be clearly documented within the medical record. CLINICAL INDICATORS - SIGNS / SYMPTOMS / LABS Pulse-105, [id number] in ED on 03/27 by Stepan Alamo Acute cholecystitis, UTI-Documented in ED on 03/27 by Stepan Alamo Fever-Documented in H&P on 03/27 by Isidro Gloria Leukocytosis consistent with possible cholecystitis or UTI-Documented in H&P on 03/27 by Isidro Gloria Ascending cholangitis and cholecystitis markedly improved -Documented in PN on 03/28 by Miguel To MD Acute renal failure secondary to dehydration and sepsis, improved-Documented in PN on 03/28 by Miguel To MD RISK FACTORS: Acute cholecystitis, UTI-Documented in ED on 03/27 by Stepan Alamo TREATMENT: The patient had Rocephin and Zosyn given in the ED-Documented in H&P on 03/27 by Isidro Gloria We will continue to cover with the Zosyn for now -Documented in H&P on 03/27 by Isidro Gloria [employer] (This form is maintained as a part of the permanent medical record) 2014 [employer] All Rights Reserved [email or web address] [phone] [email or web address]
== END 2019-03-29 14:14 | disposition home or self-care (01) | DRG 854 ==
LOC: ERS 20:17 → SURG A 03-27 00:50
PROVIDERS: ADMIT Family Medicine; ATTEND Family Medicine
PROC: 0FC98ZZ Extirpation of Matter from Common Bile Duct, Via Natural or Artificial Opening Endoscopic (ICD-10-PCS; principal; 2019-03-27)
PROC: 0FT44ZZ Resection of Gallbladder, Percutaneous Endoscopic Approach (ICD-10-PCS; 2019-03-27)
DX: A41.9 Sepsis, unspecified organism (principal); E87.1 Hypo-osmolality and hyponatremia; K80.66 Calculus of gallbladder and bile duct with acute and chronic cholecystitis without obstruction; N39.0 Urinary tract infection, site not specified; N17.9 Acute kidney failure, unspecified; K83.09 Other cholangitis; E78.5 Hyperlipidemia, unspecified; E03.9 Hypothyroidism, unspecified; I12.9 Hypertensive chronic kidney disease with stage 1 through stage 4 chronic kidney disease, or unspecified chronic kidney disease; N18.3 Chronic kidney disease, stage 3 (moderate); E87.6 Hypokalemia; E86.0 Dehydration
CPT/HCPCS: 36415; 71045; 74330; 76705; 80053; 81003; 81015; 83605; 83690; 85025; 87040; 87804; 88304; 96361; 96365; 96375; C1769; J0696; J1100; J1610; J1650; J1885; J2001; J2405; J2543; J2704; J3010; J3490; S0020